=== PATIENT | male | born 1970 | race Two or more races ===

== ENCOUNTER 2021-05-23 13:17 | Inpatient (IN) | payer MEDICAID ==
[~2021-05-23] VITALS: Ht 172.7 cm; Wt 85.3 kg
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
[2021-05-23] MEDS ORDERED: IV NS 0.9% 1,000 ML BAG IV ONE ×3 (14:30→18:00)
[2021-05-23] MEDS ORDERED: LORAZEPAM INJ 2 MG/ML VIAL IVP ONE (14:30)
[2021-05-23] MEDS ORDERED: LORAZEPAM INJ 2 MG/ML VIAL ONE ×3 (14:51→17:33)
[2021-05-23 14:55] LABS: BASOPHILS % (AUTO) 0.1 % (0.0-2.0); HEMATOCRIT 48 % (39-51); LYMPHOCYTES # (AUTO) 0.5 K/uL (0.8-4.8); LYMPHOCYTES % (AUTO) 1.8 % (20.0-44.0); MEAN CORPUSCULAR HGB CONC 33 g/dl (31.0-36.0); MEAN CORPUSCULAR VOLUME 87 fL (80-96); MONOCYTES # (AUTO) 1.2 K/uL (0.1-1.30); MONOCYTES % (AUTO) 4.1 % (2.0-12.0); NEUTROPHILS # (AUTO) 26.4 K/uL (1.8-8.9); PLATELET COUNT (AUTO) 334 K/uL (150-450); RED BLOOD CELL COUNT(AUTO) 5.57 MIL/uL (4.5-6.0)
--- NOTE | 2021-05-23 15:05 | NUR ---
IV CANNULA G18 INSERTED ON RIGHT AC.
[2021-05-23 15:15] LABS: CALCIUM, SERUM 10.4 mg/dL (8.5-10.1); CARBON DIOXIDE 26 mmol/L (21-32); CHLORIDE 103 mmol/L (98-107); CREATININE 1.7 mg/dL (0.6-1.3); GLUCOSE 195 mg/dL (74-106); POTASSIUM 4.1 mmol/L (3.5-5.1); SODIUM SERUM 143 mmol/L (136-145); UREA NITROGEN, BLOOD 17 mg/dL (7-18)
[2021-05-23 15:29] LABS: ALANINE AMINOTRANSFERASE 47 U/L (12-78); ALBUMIN 5.2 g/dL (3.4-5.0); ALCOHOL, BLOOD < 3 mg/dL (0-0); ALKALINE PHOSPHATASE 87 U/L (46-116); ASPARTATE AMINOTRANSFERASE 24 U/L (15-37); BILIRUBIN,DIRECT 0.3 mg/dL (0.0-0.2); BILIRUBIN,TOTAL 0.7 mg/dL (0.2-1.0)
[2021-05-23] MEDS ORDERED: LORAZEPAM INJ 2 MG/ML VIAL IV ONE ×3 (16:00→18:00)
[2021-05-23 16:19] LABS: BILIRUBIN,URINE NEGATIVE (NEGATIVE); COLOR,URINE YELLOW (YELLOW); LEUKOCYTE ESTERASE ,URINE NEGATIVE (NEGATIVE); NITRITE, URINE NEGATIVE (NEGATIVE); PH,URINE 6.5 (5.0-8.0); PROTEIN,URINE 100 mg/dl (NEGATIVE); UGLUCOSE NEGATIVE (NEGATIVE)
[2021-05-23 16:38] LABS: BACTERIA,URINE Few /HPF (None Seen); SQUAMOUS EPITHELIAL CELL,UR Few /HPF (None Seen); WBC,URINE 0-2 /HPF (0-3)
--- NOTE | 2021-05-23 17:02 | NUR ---
MOVE SHEET SUBMITTED AND CALLED FOR KENNY.
[2021-05-23] MEDS ORDERED: ACETAMINOPHEN 650 MG/SUPP.RECT RC ONE ×2 (17:30→17:33)
--- NOTE | 2021-05-23 17:59 | NUR ---
PT FOR INTUBATION. DR. GABRIEL BUS MONITOR, DR. AKBAR AND RT'S AT BEDSIDE.
[2021-05-23] MEDS ORDERED: Z GUARD REMEDY 4 OZ OINT TP PRN (18:00)
[2021-05-23] MEDS ORDERED: ONDANSETRON HCL/PF 4 MG/2 ML VIAL IVP PRN (18:00)
[2021-05-23] MEDS ORDERED: MAG HYDROX/AL HYDROX/SIMETH 30 ML UDC PO PRN (18:00)
[2021-05-23] MEDS ORDERED: MAGNESIUM HYDROXIDE 30 ML UDC PO PRN (18:00)
--- NOTE | 2021-05-23 18:00 | NUR ---
AMIDATE 20MG AND SUCCINYLCHOLINE 80MG GIVEN PER MD ORDER. ETT 7.5/23 CM ON THE LIP. VENT SETTINGS FOLLOWS AC: 18, TV 500, FIO2: 100% PEEP OF 5. TOLERATING VENT SETTINGS WELL. PROFOPOL DRIP STARTED PER MD ORDER.
--- NOTE | 2021-05-23 18:01 | NUR ---
RT NOTE PATIENT ORALLY INTUBATED WITH 7.5 ETT, [address] FOR AIRWAY PROTECTION. POSITIVE COLOR CHANGE. PLACED PT ON MECH VENT WITH FOLLOWING SETTINGS PER MD ORDER: AC 18, 500, 100%, +5. ENROLLMENT REPRESENTATIVE DONE. VENT PLUGGED INTO RED OUTLET. ALARMS ON AND WORKING PROPERLY. AMBU BAG AT HEAD OF BED. SUCTIONED SMALL AMOUNTS OF THIN SECRETIONS. AIRWAY SECURED. WILL CONTINUE TO MONITOR THE PATIENT CLOSELY.
[2021-05-23] MEDS ORDERED: PROPOFOL 100 ML ONE (18:05)
[2021-05-23] MEDS: PROPOFOL 100 ML IV PRN ×2 (18:12→20:36)
[2021-05-23] MEDS ORDERED: ETOMIDATE 2 MG/ML VIAL IV ONE (18:30)
[2021-05-23] MEDS ORDERED: SUCCINYLCHOLINE CHLORIDE 20 MG/ML VIAL IV ONE (18:30)
[2021-05-23] MEDS ORDERED: PROPOFOL 100 ML IV ONE (18:30)
[2021-05-23] MEDS ORDERED: IV NS 0.9% 1,000 ML IV PRN (18:30)
--- NOTE | 2021-05-23 18:55 | NUR ---
BED 253 PER NURSING SUP
--- NOTE | 2021-05-23 18:57 | NUR ---
CONTINUE DIPRIVAN DRIP TO ICU TRANSFER PER MD
[2021-05-23 19:32] LABS: ABG BASE EXCESS -5.9 mmol/L; ABG PCO2 31.6 mmHg (35.0-45.0); ABG PH 7.377 (7.350-7.450); ABG PO2 281.4 mmHg (75.0-100.0); COHb 0.3 % (0.5-1.5); MetHb 0.8 % (0.0-1.5); SITE, ABG Left Radial
--- NOTE | 2021-05-23 19:35 | NUR ---
Prince carpenter in [facility] - 05/23/21 at 1936 by KORIN REPORT GIVEN TO BONG DEJESUS JOAQUIN
--- NOTE | 2021-05-23 19:36 | NUR ---
REPORT GIVEN TO BONG RAMIREZ FOR JOAQUIN
--- NOTE | 2021-05-23 19:40 | NUR ---
RT notes FIO2 titrated down to 70% post ABG result Addendum: 05/23/21 at 2102 by ADELA SCOTT RT Amended: Links added.
--- NOTE | 2021-05-23 19:50 | NUR ---
RT Notes Pt received orally intubated w/ 7.5 ETT secured at 23cm at the lip line. Pt on [facility] vent on ordered vent settings AC, 18, VT 500, FIO2 100%, PEEP +5 w/ FIO2 titrated to 70% post ABG. Airway patent and secured. Alarms set and audible. Vent plugged into red outlet. Will cont to Monitor. Addendum: 05/23/21 at 2107 by ADELA SCOTT RT Amended: Links added.
--- NOTE | 2021-05-23 20:06 | NUR ---
SECOND IV LINE STARTED, LFA 20G
--- NOTE | 2021-05-23 20:20 | NUR ---
RT notes FIO2 titrated to 50% due to SpO2 100%. Addendum: 05/23/21 at 2102 by ADELA SCOTT RT Amended: Links added.
[2021-05-23 20:36] VITALS: BP 127/88
[2021-05-23] MEDS: IV NS 0.9% 1,000 ML IV PRN (20:42)
[2021-05-23] MEDS ORDERED: VANCOMYCIN 1 GM VIAL ONE (20:50)
[2021-05-23] MEDS ORDERED: PIPERACILLIN /TAZOBACTAM 3.375 G VIAL IV ONE (20:50)
[2021-05-23 21:00] VITALS: BP 126/86
[2021-05-23] MEDS ORDERED: VANCOMYCIN 1.5 GM in IV D5W 500ml IV ONE (21:00)
[2021-05-23] MEDS ORDERED: PIPERACILLIN /TAZOBACTAM 3.375 G in IV D5W 50 ML IV SCH (21:00)
--- NOTE | 2021-05-23 21:00 | NUR ---
RN NOTE RECEIVED A 51 YEAR OLD MALE FROM ER. PATIENT IS INTUBATED AND SEDATED. ETT 7.5/23 CM AT THE LIP. VENT SETTINGS AC 18, VT 500, FIO2 50%, PEEP 5. TOLERATING WELL, OXYGEN SATURATION OF 100 PERCENT ON MONITOR WITH GOOD WAVEFORMS. PATIENT ON TELE MONITORING, SINUS TACHYCARDIA, 105. ORAL GASTRIC TUBE PRESENT. 59 CM AT THE LIP. POSITIVE PLACEMENT VIA AUSCULTATION. OGT CONNECTED TO LOW CONTINOUS WALL SUCTION PER MD ORDER. DRAINING THOMPSON COLORED FLUIDS. SKIN IS WARM AND DRY TO TOUCH. NOTED WITH RIGHT ACT 20G AND LEFT FOREARM 20G PERIPHERAL IV. RECEIVED WITH DIPRIVAN INFUSING AT 50 MCG/KG/MIN. PATIENTS ARM WITHDRAWS TO LOCALIZED DEEP PAIN. CHOWDHURY CATHETER 16 FR PRESENT, DRAINING YARA URINE. NO VISIBLE HEMATURIA NOTED. CHOWDHURY INTACT AND DRAINING BY GRAVITY. SKIN ASSESSMENT DONE, PATIENT CLEANED, TURN & REPOSITIONED. BED LOW, IN LOCKED POSITION, CALL LIGHT WITHIN REACH. BELONGINGS SECURED AT BEDSIDE. PATIENT WITH SILVER RING/JEWELRY ON LEFT PINKY. UNABLE TO REMOVE. LEFT IN PLACE.
[2021-05-23] MEDS: ENOXAPARIN SODIUM 40 MG/0.4 ML DISP.SYRIN SQ SCH (21:08)
--- NOTE | 2021-05-23 21:11 | NUR ---
PATIENT TRANSFERRED TO [facility]
[2021-05-23 21:40] VITALS: BP 127/88
[2021-05-23 22:00] VITALS: BP 123/87
[2021-05-23] MEDS: PIPERACILLIN /TAZOBACTAM 3.375 G in IV D5W 50 ML IV SCH (22:47)
[2021-05-23 23:00] VITALS: BP 120/86
[2021-05-24] VITALS (29 sets, daily range): BP systolic 107–189; BP diastolic 72–106
[2021-05-24] MEDS: PROPOFOL 100 ML IV PRN ×2 (00:23→05:00)
[2021-05-24] MEDS ORDERED: PIPERACILLIN /TAZOBACTAM 3.375 G VIAL IV ONE (04:49)
[2021-05-24] MEDS: PIPERACILLIN /TAZOBACTAM 3.375 G in IV D5W 50 ML IV SCH (04:51)
[2021-05-24 04:53] LABS: BASOPHILS % (AUTO) 0.1 % (0.0-2.0); HEMATOCRIT 42 % (39-51); HEMOGLOBIN 14.1 g/dL (13.5-17.5); LYMPHOCYTES # (AUTO) 1.4 K/uL (0.8-4.8); LYMPHOCYTES % (AUTO) 10.2 % (20.0-44.0); MEAN CORPUSCULAR HGB CONC 34 g/dl (31.0-36.0); MEAN CORPUSCULAR VOLUME 85 fL (80-96); MONOCYTES # (AUTO) 1.3 K/uL (0.1-1.30); MONOCYTES % (AUTO) 9.3 % (2.0-12.0); NEUTROPHILS % (AUTO) 80.4 % (43.0-81.0); PLATELET COUNT (AUTO) 196 K/uL (150-450); RED BLOOD CELL COUNT(AUTO) 4.92 MIL/uL (4.5-6.0); WHITE BLOOD COUNT (AUTO) 13.6 K/uL (4.3-11.0)
[2021-05-24] MEDS: IV NS 0.9% 1,000 ML IV PRN ×2 (05:00→13:00)
[2021-05-24 05:19] LABS: CALCIUM, SERUM 8.9 mg/dL (8.5-10.1); CREATININE 1.4 mg/dL (0.6-1.3); MAGNESIUM 2.2 mg/dL (1.8-2.4); PHOSPHORUS 4.2 mg/dL (2.5-4.9); POTASSIUM 3.2 mmol/L (3.5-5.1)
--- NOTE | 2021-05-24 08:00 | NUR ---
rn notes received patient ETT/vent with sedation of Diprivan 35mcg/kg/hr, FI)@-30, peep-3. patient has no acute respiratory distress, vss, iv access on RAC infusing ns@125ml/hr, and Diprivan. flashing well, Ayala draining via gravity 5ml dark urine output. rechecked bilateral wrist restrain circulation q 2 hr. due medication administered. assist turn and reposition q 2 hr. will follow up,
--- NOTE | 2021-05-24 08:41 | NUR ---
rn notes Titrated sedation per protocol per Dr Caruso order for extubation. v/s stable bp 124/81. p78. will follow up.
[2021-05-24] MEDS ORDERED: VANCOMYCIN 1 GM in IV D5W 250 ML IV SCH (09:00)
[2021-05-24] MEDS: PANTOPRAZOLE 40 MG VIAL IV SCH (09:02)
[2021-05-24] MEDS ORDERED: POTASSIUM CL. PREMIX PERIPHER. 50 ML IV SCH (09:30)
--- NOTE | 2021-05-24 09:40 | NUR ---
RT PATIENT NON COMPLIANT WITH COMMANDS, SELF EXTUBATED. PATIENT AWAKE AND RESPONSIVE, NO SOB. ON ROOM AIR SPO2 99%. RN AT BEDSIDE.
--- NOTE | 2021-05-24 09:40 | NUR ---
rn notes patient self extubated, on room air. fully awake asking water to drink.
[2021-05-24] MEDS ORDERED: PIPERACILLIN /TAZOBACTAM 3.375 G in IV D5W 100 ML IV SCH (10:00)
[2021-05-24] MEDS ORDERED: POTASSIUM CHLORIDE 20 MEQ TAB.PRT.SR PO ONE (11:30)
--- NOTE | 2021-05-24 12:00 | NUR ---
rn noted get order to d/c Jamie, patient awake, delusional at this time, family next to the bed.
[2021-05-24] MEDS ORDERED: PIPERACILLIN /TAZOBACTAM 3.375 G in IV D5W 50 ML IV SCH (13:00)
--- NOTE | 2021-05-24 13:30 | NUR ---
RN NOTES PATIENT TALKING BY SELF, PER MOTHER PATIENT HAS SOME PSYCH PROBLEM, AND STOP TAKING MEDICATION, NOTIFIED HOSPITALIST LUANNE PLEITEZ, AND GET ORDER SEROQUEL 25MG PO, AND PSYCH EVALUATION , ORDER TAKEN AND CARRIED OUT. ALSO GET ORDER TO DOWNGRADE PATIENT TO THE TELE UNIT.
[2021-05-24] MEDS: QUETIAPINE FUMARATE 25 MG TABLET PO SCH ×2 (14:15→16:53)
[2021-05-24] MEDS ORDERED: ETOMIDATE 2 MG/ML VIAL IV ONE (14:19)
[2021-05-24] MEDS ORDERED: SUCCINYLCHOLINE CHLORIDE 20 MG/ML VIAL IV ONE (14:19)
--- NOTE | 2021-05-24 16:54 | NUR ---
rn notes administered Ativan 1 mg po prn for agitation, refused bp .
[2021-05-24] MEDS ORDERED: LORAZEPAM 1 MG TABLET PO PRN (17:00)
--- NOTE | 2021-05-24 18:30 | NUR ---
RN NOTES PATIENT ANXIOUS, HARD TO FOLLOW DIRECTION. PATIENT STATE HE WANTED TO GO HOME, REMOVED ALL VITALS TO BE TAKEN. REFUSED DINNER. PATIENT DELUSIONAL, HALLUCINATING. ENDORSED ONCOMING NURSE FOLLOW PLAN OF CARE.
[2021-05-24] MEDS: PIPERACILLIN /TAZOBACTAM 3.375 G in IV D5W 100 ML IV SCH (19:17)
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
--- NOTE | 2021-05-24 19:55 | NUR ---
ICU/RN: SPOKE WITH DR. SORIANO NEW ORDERS RECIEVED AND CARRIED OUT.
[2021-05-24] MEDS ORDERED: HALOPERIDOL LACTATE INJ 5 MG/ML VIAL IM ONE (20:00)
[2021-05-24] MEDS ORDERED: DICYCLOMINE HCL INJ 20 MG/2 ML AMPUL IM ONE (20:00)
[2021-05-24] MEDS ORDERED: LORAZEPAM INJ 2 MG/ML VIAL IM ONE (20:00)
[2021-05-24] MEDS ORDERED: diphenhydrAMINE HCL 50 MG/ML VIAL IM ONE (20:30)
--- NOTE | 2021-05-24 20:31 | NUR ---
ICU/RN: PT AGRESSIVELY LASHED OUT AGAIN. CODE TALIA INITIATED.
[2021-05-24] MEDS: ENOXAPARIN SODIUM 40 MG/0.4 ML DISP.SYRIN SQ SCH (21:35)
--- NOTE | 2021-05-24 21:37 | NUR ---
ICU/RN: PT IS MORE CALM AT THIS TIME BUT STILL VERY RESTLESS AND AGITATED IN BED. WILL CONTINUE TO MONITOR CLOSELY FROM BEDSIDE.
[2021-05-25] VITALS (22 sets, daily range): BP systolic 106–141; BP diastolic 60–95
--- NOTE | 2021-05-25 00:34 | NUR ---
ICU/RN: PT BECOMING MORE AGITATED AND RESTLESS. EXPIERIENCING HALLUCINATIONS. SPEAKING TO PEOPLE IN THE ROOM WHO ARE NOT PRESENT. MAKING MULTIPLE ATTEMPTS TO GET OUT OF BED. PULL IV OUT AND REMOVE VITAL MONITORING EQUIPTMENT. PT IS CONTINUOUSLY REORIENTED TO PLACE TIME AND SITUATION. WILL CONTINUE TO MONITOR CLOSELY FROM BEDSIDE.
[2021-05-25] MEDS: IV NS 0.9% 1,000 ML IV PRN (00:53)
[2021-05-25] MEDS: PIPERACILLIN /TAZOBACTAM 3.375 G in IV D5W 100 ML IV SCH ×2 (02:21→10:47)
--- NOTE | 2021-05-25 03:40 | NUR ---
ICU/RN: PT STILL EXPIERIENCING HALLUCINATIONS. SPEAKING BIZARRELY IN A MIX OF BRITISH AND JAPANESE. SPEAKING TO PEOPLE IN HIS ROOM. UNABLE TO REORIENT PT TO PLACE AND SITUATION. WILL CONTINUE TO MONITOR CLOSELY.
--- NOTE | 2021-05-25 03:49 | NUR ---
ICU/RN: PT STATED HE HAD TO PEE WHEN OFFERED URINAL AND ASSISTANCE HE SAID HE DIDN'T HAVE TO PEE. PT OFFERED WATER. PT DRANK ABOUT 200MLS WATER. WILL CONTINUE TO MONITOR.
[2021-05-25 04:13] LABS: CREATININE 1.2 mg/dL (0.6-1.3); POTASSIUM 3.4 mmol/L (3.5-5.1)
[2021-05-25 04:14] LABS: BASOPHILS % (AUTO) 0.2 % (0.0-2.0); EOSINOPHILS % (AUTO) 0.1 % (0.0-6.0); HEMATOCRIT 42 % (39-51); HEMOGLOBIN 14.2 g/dL (13.5-17.5); LYMPHOCYTES # (AUTO) 1.6 K/uL (0.8-4.8); LYMPHOCYTES % (AUTO) 10.8 % (20.0-44.0); MEAN CORPUSCULAR HGB CONC 34 g/dl (31.0-36.0); MEAN CORPUSCULAR VOLUME 85 fL (80-96); MONOCYTES # (AUTO) 0.9 K/uL (0.1-1.30); MONOCYTES % (AUTO) 5.9 % (2.0-12.0); PLATELET COUNT (AUTO) 199 K/uL (150-450); RED BLOOD CELL COUNT(AUTO) 4.91 MIL/uL (4.5-6.0); WHITE BLOOD COUNT (AUTO) 14.4 K/uL (4.3-11.0)
[2021-05-25 04:55] LABS: CALCIUM, SERUM 9.3 mg/dL (8.5-10.1)
--- NOTE | 2021-05-25 04:56 | NUR ---
ICU/RN: PT WITH SOILED LINENS. COOPERATIVE WITH AM CARE AND COMPLETE LINEN CHANGE. PT RESTING IN BED WITH EYES CLOSED. RESPIRATIONS EVEN AND UNLABORED. WILL CONTINUE TO MONITOR CLOSELY FROM BEDSIDE.
[2021-05-25] MEDS: PANTOPRAZOLE 40 MG VIAL IV SCH (07:43)
[2021-05-25] MEDS: QUETIAPINE FUMARATE 25 MG TABLET PO SCH (07:43)
--- NOTE | 2021-05-25 08:22 | NUR ---
RN NOTES RECEIVED PATIENT AWAKE, DELUSIONAL , BILATERAL SOFT RESTRAIN ON, RECHECKED FOR CIRCULATION, INSERTED NEW IV ACCESS ON LFA INTACT, INFUSING NS @75 ML/HR. DUE MEDICATION ADMINISTERED, PATIENT TOLERATED BREAKFAST 10% BACK TO SLEEP, BED ALARM ON, VSS. WILL FOLLOW UP. WAITING FOR PSYCH EVALUATION.
--- NOTE | 2021-05-25 08:56 | NUR ---
SS consult received over the weekend for drug abuse/ overdose and DTS. SW will follow up at a later time.
[2021-05-25] MEDS ORDERED: POTASSIUM CHLORIDE 20 MEQ TAB.PRT.SR PO SCH (09:30)
[2021-05-25] MEDS ORDERED: POTASSIUM CHLORIDE 20 MEQ TAB.PRT.SR PO ONE (11:00)
--- NOTE | 2021-05-25 11:41 | NUR ---
SS Note: SW received consult for drug abuse overdose and danger to self. SW spoke with pt.'s nurse senthil Starkey she stated that we need pt.'s SS information. SW spoke with pt.'s sister Pat [[phone]] regarding SS information. Sister stated that she will try to look for his info. and mentioned that pt. knows his SS information but he needs to be more alert and oriented. SW contact [facility] [[id number]] and left voicemail.
--- NOTE | 2021-05-25 12:41 | NUR ---
RN NOTES SEEN PATIENT VIA PSYCHIATRIST Dr MARIA, PATIENT GET NEW PRESCRIBED MEDICATION. WILL FOLLOW UP.
[2021-05-25] MEDS ORDERED: HALOPERIDOL LACTATE INJ 5 MG/ML VIAL IM PRN (13:00)
[2021-05-25] MEDS: BENZTROPINE MESYLATE (1 MG) 1 MG TABLET PO SCH ×2 (13:27→16:12)
[2021-05-25] MEDS: HALOPERIDOL 5 MG TABLET PO SCH ×2 (13:27→16:11)
--- NOTE | 2021-05-25 16:41 | NUR ---
SS Note: ALEX spoke with nursing supervisor [employer] former, Klaudia, regarding pt.'s discharge plan. Pt. will possibly be discharged on 05/26. ALEX spoke with sister Pat and she said she will notify her mother Ashley [[phone]] to diamond picker pt. ALEX left resources in pt.'s chart.
--- NOTE | 2021-05-25 18:00 | NUR ---
RN NOTES PATIENT TRANSFERRED TO THE [facility] ROOM 105 STABLE CONDITION, PM MEDICATION ADMINISTERED, SISTER NEXT TO THE BED. PATIENT TOLERATED DINNER WELL. INFUSING NS@ 75 ML/HR INTACT ON JULIANE MIDLINE INTACT. ENDORSED ONCOMING NURSE JOAQUIN.
[2021-05-25] MEDS: ENOXAPARIN SODIUM 40 MG/0.4 ML DISP.SYRIN SQ SCH (21:00)
[2021-05-26 05:41] VITALS: BP 124/73
--- NOTE | 2021-05-26 06:42 | NUR ---
MS RN NOTES PT IN BED ASLEEP EASILY WOKEN UP. A/O X3 ABLE TO MAKE NEEDS KNOW NO NOTED AGITATION OR AGGRESSIVENESS DURING THE SHIFT.PT HAS IV ACCESS ON THE SOFIA MIDLINE AND RIGHT FOREARM, RUNNING NS @75ML/HR TOLERATING WELL. CALL LIGHT WITHIN REACH TABLE WITHIN REACH. ALL NEEDS ATTENDED AND ANTICIPATED THROUGHOUT THE SHIFT. WILL ENODRSE CRAE TO DYA SHIFT NURSE.
[2021-05-26 07:27] LABS: CALCIUM, SERUM 9.1 mg/dL (8.5-10.1); CREATININE 0.9 mg/dL (0.6-1.3); POTASSIUM 3.5 mmol/L (3.5-5.1)
[2021-05-26] MEDS ORDERED: PANTOPRAZOLE 40 MG TABLET.DR PO SCH (07:30)
--- NOTE | 2021-05-26 07:30 | NUR ---
RN OPENING NOTE PT IN BED ASLEEP AND WOKE UP FOR ASSESSMENT. A/O X3 ABLE TO MAKE NEEDS KNOW NO NOTED AGITATION OR AGGRESSIVENESS. PT HAS IV ACCESS ON THE SOFIA MIDLINE RUNNING NS @75ML/HR TOLERATING WELL. CALL LIGHT WITHIN REACH TABLE WITHIN REACH. SAFETY MEASURES NOTED AND ACCOUNTED FOR. BED IN LOW POSITION. WHEELS LOCKED IN PLACE. WILL CONTINUE TO MONITOR
[2021-05-26 07:31] LABS: BASOPHILS % (AUTO) 0.4 % (0.0-2.0); EOSINOPHILS % (AUTO) 1.2 % (0.0-6.0); HEMATOCRIT 41 % (39-51); HEMOGLOBIN 14.3 g/dL (13.5-17.5); LYMPHOCYTES # (AUTO) 1.7 K/uL (0.8-4.8); LYMPHOCYTES % (AUTO) 16.2 % (20.0-44.0); MEAN CORPUSCULAR HGB CONC 35 g/dl (31.0-36.0); MEAN CORPUSCULAR VOLUME 84 fL (80-96); MONOCYTES # (AUTO) 0.6 K/uL (0.1-1.30); MONOCYTES % (AUTO) 5.6 % (2.0-12.0); NEUTROPHILS # (AUTO) 8.2 K/uL (1.8-8.9); NEUTROPHILS % (AUTO) 76.6 % (43.0-81.0); PLATELET COUNT (AUTO) 209 K/uL (150-450); RED BLOOD CELL COUNT(AUTO) 4.87 MIL/uL (4.5-6.0); WHITE BLOOD COUNT (AUTO) 10.7 K/uL (4.3-11.0)
[2021-05-26 08:00] VITALS: BP 118/73
[2021-05-26 09:00] VITALS: BP 118/73
[2021-05-26] MEDS: HALOPERIDOL 5 MG TABLET PO SCH ×2 (09:24→12:34)
[2021-05-26] MEDS: BENZTROPINE MESYLATE (1 MG) 1 MG TABLET PO SCH ×2 (09:25→12:34)
--- NOTE | 2021-05-26 12:48 | NUR ---
SPECIALTY MOLDER NOTES PER PRIMARY NURSE CELY RN, HE WENT TO PATIENT'S ROOM TO ADMINISTER HIS 1300 MEDICATIONS BUT PATIENT NOWHERE TO BE FOUND. HOSPITAL GOWN AND HIS IV G 20 CATHETER FOUND HANGING ON THE IV POLE BY ME CHARGE NURSE AND CELY PRIMARY NURSE. NO BELONGINGS LEFT INSIDE HIS ROOM PER RN, HE NOTIFIED CHAIN TESTING MACHINE OPERATOR AND ACCORDING TO THEM, THEY DID NOT SEE ANYONE. AVEL WINKLER RN FONDANT COOKER AND DR. JOHNSON NOTIFIED. INCIDENT REPORT FILED BY CELY ALVAREZ NURSE Addendum: 05/26/21 at 1312 by JATINDER URIOSTEGUI RN ADDENDUM: INCIDENT REPORT ON FILE Unique Id: [id number]
--- NOTE | 2021-05-26 13:58 | NUR ---
INTELLIGENCE DIRECTOR NOTES [facility] - PATIENT ELOPED DISPATCHER MAINTENANCE SERVICE NUMBER [id number] INCIDENT NUMBER [id number]
== END 2021-05-26 17:22 | disposition home or self-care (01) | DRG 816 ==
LOC: ER 13:19 → ICU 19:51 → MEDSG1 05-25 16:05
PROVIDERS: ADMIT Nurse Practitioner Acute Care; ATTEND Student in an Organized Health Care Education/Training Program
PROC: 5A1935Z Respiratory Ventilation, Less than 24 Consecutive Hours (ICD-10-PCS; principal; 2021-05-23)
PROC: 0BH18EZ Insertion of Endotracheal Airway into Trachea, Via Natural or Artificial Opening Endoscopic (ICD-10-PCS; 2021-05-23)
PROC: 05HB33Z Insertion of Infusion Device into Right Basilic Vein, Percutaneous Approach (ICD-10-PCS; 2021-05-25)
DX: T40.5X1A Poisoning by cocaine, accidental (unintentional), initial encounter (principal); J96.01 Acute respiratory failure with hypoxia; J69.0 Pneumonitis due to inhalation of food and vomit; N17.0 Acute kidney failure with tubular necrosis; G92.8 Other toxic encephalopathy; Y92.59 Other trade areas as the place of occurrence of the external cause; F20.9 Schizophrenia, unspecified; F81.9 Developmental disorder of scholastic skills, unspecified; D72.829 Elevated white blood cell count, unspecified; F14.10 Cocaine abuse, uncomplicated; F15.10 Other stimulant abuse, uncomplicated; E87.6 Hypokalemia; Z91.14 Patient's other noncompliance with medication regimen
CPT/HCPCS: 31720; 36410; 36415; 36600; 71045-TC; 80048-TC; 80076-TC; 81001; 83735-TC; 84100-TC; 84484-TC; 85025-TC; 87081-TC; 93307-TC; 94002-TC; 94799-TC; 99082-TC; C9113; C9803; G0378; G0480; J0330; J0500; J1200; J1630; J1650; J2060; J2543; J3370; J3490; J7030; J7060